=== PATIENT | male | born 1975 | race Caucasian/White ===

== ENCOUNTER 2017-11-20 09:45 | Emergency (ER) | payer BC ==
[2017-11-20] MEDS: METHOCARBAMOL 750 MG TAB PO (11:17)
== END 2017-11-20 12:35 | disposition home or self-care (01) ==
LOC: FTE 12:35
DX: M54.5 Low back pain (principal); G89.29 Other chronic pain; R40.2412 Glasgow coma scale score 13-15, at arrival to emergency department
CPT/HCPCS: 20552; 99283-25